=== PATIENT | female | born 1955 | race Caucasian/White ===

== ENCOUNTER 2017-07-15 07:11 | Day surgery (SDC) | payer OTHER ==
[2017-07-15] MEDS: BUPIVACAINE 0.5% (SDV) 30 ML INJ
[~2017-07-15 07:11] MED LIST: LIDOCAINE 2% (SDV) 5 ML INJ
[2017-07-15] MEDS ORDERED: PROPOFOL 100 ML (09:11)
[2017-07-15] MEDS ORDERED: MUPIROCIN 2% 15 GM CR (09:11)
[2017-07-15] MEDS ORDERED: MIDAZOLAM 1 MG/ML 2 ML INJ IV (09:30)
[2017-07-15] MEDS ORDERED: MEPERIDINE 25 MG INJ IV (09:30)
[2017-07-15] MEDS ORDERED: LABETALOL HCL 20MG INJ IV (09:30)
[2017-07-15] MEDS ORDERED: HYDROmorphONE (0.2 MG/ML) 10ML SYG IV ×2 (09:30)
[2017-07-15] MEDS ORDERED: hydrALAzine 20 MG INJ IV (09:30)
[2017-07-15] MEDS ORDERED: OXYCODONE/ACETAMINOPHEN (5/325) TAB PO ×2 (09:30)
[2017-07-15] MEDS ORDERED: KETOROLAC 30 MG INJ IV (09:30)
[2017-07-15] MEDS ORDERED: EPHEDrine SULFATE 50 MG/5 ML SYG IV (09:30)
[2017-07-15] MEDS ORDERED: FENTAnyl 50 MCG/ML VIAL IV ×3 (09:30)
[2017-07-15] MEDS ORDERED: CEFAZOLIN 2 GM/50 ML (PMX) 50 ML IVPB (09:30)
[2017-07-15] MEDS ORDERED: ONDANSETRON 4 MG INJ IV (09:30)
[2017-07-15] MEDS ORDERED: CEFAZOLIN 1 GM INJ ×2 (09:39→10:10)
[2017-07-15] MEDS ORDERED: LIDOCAINE 1% (MPF) 30 ML INJ (09:45)
[2017-07-15] MEDS ORDERED: DEXAMETHASONE 4 MG/ML 1 ML INJ (10:04)
[2017-07-15] MEDS ORDERED: ONDANSETRON 4 MG INJ (10:10)
[2017-07-15] MEDS: DIPHENHYDRAMINE 50 MG INJ IV (11:33)
== END 2017-07-15 13:20 | disposition home or self-care (01) ==
LOC: SDS 07:11
DX: L60.0 Ingrowing nail (principal); L03.031 Cellulitis of right toe; L03.032 Cellulitis of left toe; I10 Essential (primary) hypertension; E66.01 Morbid (severe) obesity due to excess calories; Z68.39 Body mass index [BMI] 39.0-39.9, adult; Z88.2 Allergy status to sulfonamides
CPT/HCPCS: 11750; 88304